=== PATIENT | male | born 1975 ===

== ENCOUNTER 2018-12-28 12:47 | Observation (INO) | payer OTHER ==
[2018-12-28 15:11] LABS: BASO # 0.1 K/uL (0.0-0.2); BASO % 0.8 % (0.0-2.0); EOS # 0.2 K/uL (0.0-0.7); EOS % 1.6 % (0.0-4.0); HEMOGLOBIN 15.2 g/dL (12.0-18.0); LYMPH # 2.4 K/uL (1.0-4.3); LYMPH % 25.1 % (20.0-40.0); MEAN CELL VOLUME 90.3 fL (80.0-94.0); MEAN CORPUSCULAR HEMOGLOBIN 30.2 pg (27.0-31.0); MEAN CORPUSCULAR HGB CONC 33.5 g/dL (33.0-37.0); MEAN PLATELET VOLUME 10.3 fL (7.2-11.7); MONO # 0.7 K/uL (0.0-0.8); MONO % 7.6 % (0.0-10.0); NEUT # 6.2 K/uL (1.8-7.0); NEUT % 64.9 % (50.0-75.0); NRBC % 0.1 % (0.0-2.0); RBC 5.03 Mil/uL (4.40-5.90); RED CELL DISTRIBUTION WIDTH 13.5 % (11.5-14.5); WHITE BLOOD COUNT 9.5 K/uL (4.8-10.8)
[2018-12-28 15:25] LABS: ALB/GLOB RATIO 1.4 (1.0-2.1); ALBUMIN 4.6 g/dL (3.5-5.0); ALT/SGPT 38 U/L (21-72); AST/SGOT 43 U/L (17-59); BLOOD UREA NITROGEN 21 mg/dL (9-20); CALCIUM 9.1 mg/dl (8.6-10.4); GFR NON-AFRICAN AMERICAN > 60; LIPASE 124 U/L (23-300)
--- NOTE | 2018-12-28 15:39 | RAD ---
HISTORY: SOB COMPARISON: None available. TECHNIQUE: Chest PA and lateral FINDINGS: LUNGS: No focal consolidation. Please note that chest x-ray has limited sensitivity for the detection of pulmonary masses. PLEURA: No significant pleural effusion identified. No definite pneumothorax . CARDIOVASCULAR: Heart size appears within normal limits. No atherosclerotic calcification present. OSSEOUS STRUCTURES: No acute osseous abnormality identified. VISUALIZED UPPER ABDOMEN: Unremarkable. OTHER FINDINGS: None. IMPRESSION: No focal consolidation.
--- NOTE | 2018-12-28 15:39 | C.PDOC ---
History Of Present Illness 43 y/o male presents to the ER complaining of midsternal chest pain which has been present for the past 3 days. Patient states that pain is non radiating. Patient denies having SOB, fever,chills, nausea, vomiting, and leg swelling. Time Seen by Provider: 12/28/18 14:49 Chief Complaint (Nursing): Chest Pain History Per: Patient History/Exam Limitations: no limitations Onset/Duration Of Symptoms: Days Current Symptoms Are (Timing): Still Present Severity: Moderate Quality: Aching Exacerbating Factors: None Alleviating Factors: None Additional History Per: Patient Past Medical History Reviewed: Historical Data, Nursing Documentation, Vital Signs Vital Signs: Last Vital Signs Temp 98.2 F 12/28/18 13:31 Pulse 98 H 12/28/18 13:31 Resp 20 12/28/18 13:31 BP 137/87 12/28/18 13:31 Pulse Ox 98 12/28/18 13:31 - Medical History PMH: No Chronic Diseases Surgical History: No Surg Hx Family History: States: No Known Family Hx - Social History Hx Alcohol Use: No Hx Substance Use: No Review Of Systems Except As Marked, All Systems Reviewed And Found Negative. Constitutional: Negative for: Fever, Chills Cardiovascular: Positive for: Chest Pain Respiratory: Negative for: Shortness of Breath Physical Exam - Physical Exam Appears: Non-toxic, No Acute Distress Skin: Normal Color, Warm, Dry Head: Atraumatic, Normacephalic Eye(s): bilateral: Normal Inspection Nose: Normal Oral Mucosa: Moist Neck: Supple Chest: Symmetrical Cardiovascular: Rhythm Regular Respiratory: Normal Breath Sounds, No Rales, No Rhonchi, No Wheezing Gastrointestinal/Abdominal: Normal Exam, Soft, No Tenderness, No Guarding, No Rebound Neurological/Psych: Oriented x3, Normal Speech ED Course And Treatment - Laboratory Results Result Diagrams: 12/28/18 15:06 12/28/18 15:06 Lab Results: Total Bilirubin 0.4 mg/dL (0.2-1.3) 12/28/18 15:06 AST 43 U/L (17-59) 12/28/18 15:06 ALT 38 U/L (21-72) 12/28/18 15:06 Alkaline Phosphatase 43 U/L (38-126) 12/28/18 15:06 Total Protein 8.0 g/dL (6.3-8.3) 12/28/18 15:06 Albumin 4.6 g/dL (3.5-5.0) 12/28/18 15:06 Globulin 3.3 gm/dL (2.2-3.9) 12/28/18 15:06 Albumin/Globulin Ratio 1.4 (1.0-2.1) 12/28/18 15:06 Lipase 124 U/L (23-300) 12/28/18 15:06 Lab Interpretation: No Acute Changes ECG: Interpreted By Me ECG Rhythm: Sinus Rhythm, Nonspecific Changes ECG Interpretation: No Acute Changes Rate From EC O2 Sat by Pulse Oximetry: 98 (RA) Pulse Ox Interpretation: Normal - Radiology CXR: Viewed By Me, Read By Radiologist (FINDINGS:) Progress Note: Treated with ASA 325 mg PO. 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 - Scribe Statement The provider has reviewed the documentation as recorded by the Gaetano Johnson Provider Attestation All medical record entries made by the Scribe were at my direction and personally dictated by me. I have reviewed the chart and agree that the record accurately reflects my personal performance of the history, physical exam, medical decision making, and the department course for this patient. I have also personally directed, reviewed, and agree with the discharge instructions and disposition.
[2018-12-28 16:11] LABS: URINE AMORPHOUS SEDIMENT MODERATE /ul (<OCC); URINE BACTERIA RARE (<OCC); URINE BILIRUBIN NEGATIVE (NEGATIVE); URINE BLOOD NEGATIVE (NEGATIVE); URINE CLARITY Turbid (Clear); URINE COLOR Yellow (YELLOW); URINE GLUCOSE (UA) NORMAL (Normal); URINE LEUKOCYTE ESTERASE NEG Leu/uL (Negative); URINE PROTEIN NEGATIVE (NEGATIVE); URINE UROBILINOGEN NORMAL mg/dL (0.2-1.0)
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
[2018-12-28 17:09] LABS: BARBITURATES, UR NEGATIVE (NEGATIVE); BENZODIAZEPINES, UR NEGATIVE (NEGATIVE); OPIATES, UR NEGATIVE (NEGATIVE); PHENCYCLIDINE, UR NEGATIVE (NEGATIVE)
[2018-12-28] MEDS ORDERED: Enoxaparin 80 mg Syringe SC SCH (18:00)
[2018-12-28] MEDS: Metoprolol Succinate 25 mg XL Tab PO SCH (18:43)
[2018-12-28] MEDS ORDERED: Mineral Oil Enema 135 ml RC ONE (18:52)
--- NOTE | 2018-12-28 20:08 | CP.PCM.CON ---
History of Present Illness - History of Present Illness History of Present Illness: Jareth Morales PGY1, Cardio consult note for Dr Bergman Pt is a 43 yo male with a PMH of HLD presenting with chest pain for 5 days which comes and goes. Pt states he has a pressure like pain in the center of his chest. Pt went to [facility] ED on Wednesday, pt was told he would require a cardiac cath but pt ended up leaving AMA. Standing made the pain worse, sitting/ laying down helped to relieve the pain. Pt states he has smoked for the past 20 years. Pt states his PMD gave him a medications but he is not compliant. Pt states he is mildly dizzy. Pt stopped taking his Rosuvastatin on Wednesday. Past Patient History - Past Social History Smoking Status: Never Smoked - PSYCHIATRIC Hx Substance Use: No Meds Allergies/Adverse Reactions: Allergies Allergy/AdvReac Type Severity Reaction Status Date / Time No Known Allergies Allergy Unverified 12/28/18 13:33 - Medications Medications: Current Medications Aspirin (Aspirin Chewable) 81 mg PO DAILY [facility] Metoprolol Succinate (Toprol Xl) 25 mg PO DAILY [facility] Last Admin: 12/28/18 18:43 Dose: 25 mg Nitroglycerin (Nitrostat Sl Tab) 0.4 mg SL Q5M PRN PRN Reason: Pain, severe (8-10) Pneumococcal Polyvalent Vaccine (Pneumovax 23 Vaccine) 0.5 ml IM .ONCE ONE Stop: 12/29/18 10:01 Rosuvastatin Calcium (Crestor) 10 mg PO [facility] Physical Exam - Constitutional Appears: No Acute Distress - Head Exam Head Exam: ATRAUMATIC, NORMOCEPHALIC - Eye Exam Eye Exam: EOMI - ENT Exam ENT Exam: Mucous Membranes Moist - Neck Exam Neck exam: Positive for: Normal Inspection - Respiratory Exam Respiratory Exam: Clear to Auscultation Bilateral, NORMAL BREATHING PATTERN. absent: Accessory Muscle Use, Respiratory Distress - Cardiovascular Exam Cardiovascular Exam: RRR, +S1, +S2. absent: Diastolic murmur, Systolic Murmur - GI/Abdominal Exam GI & Abdominal Exam: Normal Bowel Sounds, Soft - Extremities Exam Extremities exam: Positive for: full ROM, pedal pulses present. Negative for: calf tenderness - Neurological Exam Neurological exam: Alert, Oriented x3, Reflexes Normal - Psychiatric Exam Psychiatric exam: Normal Affect, Normal Mood - Skin Skin Exam: Dry, Intact, Warm Results - Vital Signs Recent Vital Signs: Last Vital Signs Temp 98.9 F 12/28/18 18:16 Pulse 89 12/28/18 18:16 Resp 18 12/28/18 18:16 BP 146/88 12/28/18 18:16 Pulse Ox 97 12/28/18 18:16 - Labs Result Diagrams: 12/28/18 15:06 12/28/18 15:06 Labs: Laboratory Results - last 24 hr 12/28/18 12/28/18 12/28/18 15:06 15:06 15:53 WBC 9.5 RBC 5.03 Hgb 15.2 Hct 45.4 MCV 90.3 MCH 30.2 MCHC 33.5 RDW 13.5 Plt Count 154 MPV 10.3 Neut % (Auto) 64.9 Lymph % (Auto) 25.1 [place] % (Auto) 7.6 Eos % (Auto) 1.6 Baso % (Auto) 0.8 Neut # (Auto) 6.2 Lymph # (Auto) 2.4 [place] # (Auto) 0.7 Eos # (Auto) 0.2 Baso # (Auto) 0.1 Sodium 139 Potassium 4.0 Chloride 101 Carbon Dioxide 28 Anion Gap 14 BUN 21 H Creatinine 0.9 Est GFR ( Amer) > 60 Est GFR (Non-Af Amer) > 60 Random Glucose 97 Hemoglobin A1c Calcium 9.1 Total Bilirubin 0.4 AST 43 ALT 38 Alkaline Phosphatase 43 CK-MB (Mass) Troponin I 1.8700 H* Total Protein 8.0 Albumin 4.6 Globulin 3.3 Albumin/Globulin Ratio 1.4 Lipase 124 Urine Color Yellow Urine Clarity Turbid Urine pH 7.0 Ur Specific [place] 1.024 Urine Protein Negative Urine Glucose (UA) Normal Urine Ketones Negative Urine Blood Negative Urine Nitrate Negative Urine Bilirubin Negative Urine Urobilinogen Normal Ur Leukocyte Esterase Neg Amorphous Sediment Moderate H Urine Bacteria Rare Urine Opiates Screen Urine Methadone Screen Ur Barbiturates Screen Ur Phencyclidine Scrn Ur Amphetamines Screen U Benzodiazepines Scrn U Oth Cocaine Metabols U Cannabinoids Screen 12/28/18 12/28/18 12/28/18 16:21 16:43 17:08 WBC RBC Hgb Hct MCV MCH MCHC RDW Plt Count MPV Neut % (Auto) Lymph % (Auto) [place] % (Auto) Eos % (Auto) Baso % (Auto) Neut # (Auto) Lymph # (Auto) [place] # (Auto) Eos # (Auto) Baso # (Auto) Sodium Potassium Chloride Carbon Dioxide Anion Gap BUN Creatinine Est GFR ( Amer) Est GFR (Non-Af Amer) Random Glucose Hemoglobin A1c 5.7 Calcium Total Bilirubin AST ALT Alkaline Phosphatase CK-MB (Mass) 7.73 H Troponin I Total Protein Albumin Globulin Albumin/Globulin Ratio Lipase Urine Color Urine Clarity Urine pH Ur Specific [place] Urine Protein Urine Glucose (UA) Urine Ketones Urine Blood Urine Nitrate Urine Bilirubin Urine Urobilinogen Ur Leukocyte Esterase Amorphous Sediment Urine Bacteria Urine Opiates Screen Negative Urine Methadone Screen Negative Ur Barbiturates Screen Negative Ur Phencyclidine Scrn Negative Ur Amphetamines Screen Negative U Benzodiazepines Scrn Negative U Oth Cocaine Metabols Negative U Cannabinoids Screen Negative Assessment & Plan - Assessment and Plan (Free Text) Assessment: NSTEMI ACS Angina HLD Tobacco abuse Plan: NSTEMI HA1C Trop 1.87, continue to trend Q6 TSH follow up lipid panel follow up ECHO follow up Medications ASA metoprolol nitrostat SL lorenzo Terry Pt seen, examined, assessment and plan discussed with Dr Pacheco Morales PGY1, Internal Medicine Resident - Date & Time Date: 12/28/18 Time: 20:08
[2018-12-28 20:29] LABS: CK-MB 8.39 ng/mL (0.0-3.38); TROPONIN I 2.89 ng/mL (0.00-0.120)
[2018-12-29 00:55] VITALS: RESP 20
[2018-12-29 03:49] LABS: CK-MB 9.21 ng/mL (0.0-3.38); TROPONIN I 4.25 ng/mL (0.00-0.120)
[2018-12-29] MEDS ORDERED: Lidocaine 2% MPF (5 ml) Inj ONE ×2 (06:36→06:53)
[2018-12-29] MEDS ORDERED: Verapamil 2 ML ONE (06:43)
[2018-12-29] MEDS ORDERED: Midazolam 2 MG/2 ML VIAL ONE (07:04)
--- NOTE | 2018-12-29 07:21 | CP.PCM.PN ---
Subjective - Date & Time of Evaluation Date of Evaluation: 12/29/18 Time of Evaluation: 07:21 - Subjective Subjective: Progress Note for Hospitalist service Patient seen and examined at bedside. He states he has no chest pain, shortness of breath, palpitations currently. He denies fevers, chills, headache, dizziness, abdominal pain, nausea, vomiting, diarrhea. Objective - Vital Signs/Intake and Output Vital Signs (last 24 hours): Temp Pulse Resp BP Pulse Ox 98.1 F 69 20 113/74 98 12/28/18 23:25 12/29/18 01:00 12/28/18 23:25 12/28/18 23:25 12/28/18 23:25 Intake and Output: 12/29/18 12/29/18 06:59 18:59 Intake Total 400 Balance 400 - Medications Medications: Current Medications Aspirin (Aspirin Chewable) 81 mg PO DAILY [facility] Metoprolol Succinate (Toprol Xl) 25 mg PO DAILY [facility] Last Admin: 12/28/18 18:43 Dose: 25 mg Nitroglycerin (Nitrostat Sl Tab) 0.4 mg SL Q5M PRN PRN Reason: Pain, severe (8-10) Pneumococcal Polyvalent Vaccine (Pneumovax 23 Vaccine) 0.5 ml IM .ONCE ONE Stop: 12/29/18 10:01 Rosuvastatin Calcium (Crestor) 10 mg PO HS [facility] Last Admin: 12/28/18 21:55 Dose: 10 mg - Labs Labs: 12/28/18 15:06 12/28/18 15:06 - Constitutional Appears: Well, No Acute Distress - Head Exam Head Exam: ATRAUMATIC, NORMOCEPHALIC - Eye Exam Eye Exam: EOMI, PERRL - ENT Exam ENT Exam: Mucous Membranes Moist - Neck Exam Neck Exam: Full ROM - Respiratory Exam Respiratory Exam: Clear to Ausculation Bilateral, NORMAL BREATHING PATTERN. absent: Rales, Rhonchi, Wheezes, Respiratory Distress, Stridor - Cardiovascular Exam Cardiovascular Exam: REGULAR RHYTHM, +S1, +S2 - GI/Abdominal Exam GI & Abdominal Exam: Soft, Normal Bowel Sounds. absent: Distended, Firm, Guarding, Rigid, Tenderness - Extremities Exam Extremities Exam: absent: Calf Tenderness, Pedal Edema - Neurological Exam Neurological Exam: Alert, Awake, Oriented x3 - Psychiatric Exam Psychiatric exam: Normal Affect, Normal Mood - Skin Skin Exam: Dry, Intact, Warm Assessment and Plan - Assessment and Plan (Free Text) Assessment: 43 year old male who presents for 5 day history of intermittent chest pain Plan: NSTEMI ASA 81mg PO daily Toprol XL 25mg PO daily Nitroglycerin 0.4mg SL Q5 Crestor 10mg PO HS UDS negative Stage Set [employer]er Dr. Bergman consulted, help appreciated EKG NSR 95 LAD EKG NSR 75 LAD EKG NSR 71 CXR no focal consolidation Troponins 1.87 --> 2.89 --> 4.25 Echo report pending Cath revealed LAD mid 80% stenosis, diagonal 1 70% stenosis, left circumflex 99% stenosis, RCA 55% stenosis PCI at [place] today. History of hyperlipidemia Crestor 10mg PO HS Case discussed with Dr. Leanne Phillips, PGY1
[2018-12-29] MEDS ORDERED: Pneumococcal 23-Valent Vaccine IM ONE (10:00)
--- NOTE | 2018-12-29 13:04 | CP.PCM.PN ---
Subjective - Date & Time of Evaluation Date of Evaluation: 12/29/18 Time of Evaluation: 07:00 - Subjective Subjective: Pt seen and examined this morning before procedure. Objective - Vital Signs/Intake and Output Vital Signs (last 24 hours): Temp Pulse Resp BP Pulse Ox 98.1 F 88 20 113/74 98 12/28/18 23:25 12/29/18 11:35 12/28/18 23:25 12/28/18 23:25 12/28/18 23:25 Intake and Output: 12/29/18 12/29/18 06:59 18:59 Intake Total 400 Balance 400 - Medications Medications: Current Medications Aspirin (Aspirin Chewable) 81 mg PO DAILY [facility] Metoprolol Succinate (Toprol Xl) 25 mg PO DAILY [facility] Last Admin: 12/28/18 18:43 Dose: 25 mg Nitroglycerin (Nitrostat Sl Tab) 0.4 mg SL Q5M PRN PRN Reason: Pain, severe (8-10) Rosuvastatin Calcium (Crestor) 10 mg PO [facility] Last Admin: 12/28/18 21:55 Dose: 10 mg - Labs Labs: 12/28/18 15:06 12/28/18 15:06 - Constitutional Appears: No Acute Distress - Head Exam Head Exam: ATRAUMATIC, NORMOCEPHALIC - Eye Exam Eye Exam: EOMI - ENT Exam ENT Exam: Mucous Membranes Moist - Neck Exam Neck Exam: Full ROM - Respiratory Exam Respiratory Exam: Clear to Ausculation Bilateral, NORMAL BREATHING PATTERN. absent: Accessory Muscle Use - Cardiovascular Exam Cardiovascular Exam: RRR, +S1, +S2. absent: Diastolic murmur, Murmur - GI/Abdominal Exam GI & Abdominal Exam: Soft, Normal Bowel Sounds. absent: Tenderness - Extremities Exam Extremities Exam: Full ROM. absent: Calf Tenderness, Pedal Edema, Tenderness - Neurological Exam Neurological Exam: Alert, Awake, Oriented x3 - Psychiatric Exam Psychiatric exam: Normal Affect, Normal Mood - Skin Skin Exam: Dry, Intact, Warm Assessment and Plan - Assessment and Plan (Free Text) Assessment: NSTEMI ACS Angina HLD Tobacco abuse Plan: NSTEMI HA1C 5.7 Trop (12/28/18) 1.87, 2.89, 4.25 TSH, lipid panel follow up ECHO 12/28/18 follow up read cardiac cath perfomed at [facility] today, [place] [facility] [place] Medications ASA metoprolol nitrostat SL masteror Harrison Pt seen, examined, assessment and plan discussed with Dr Pacheco Morales PGY1, Internal Medicine Resident
--- NOTE | 2018-12-29 14:16 | CARDCATH ---
PROCEDURE DATE: 12/29/2018 PROCEDURES PERFORMED: Left heart catheterization with selective left and right coronary angiogram, left ventriculogram, 6-American left radial arterial access. CLINICAL INDICATIONS: Non-ST elevation DE. ANGIOGRAPHIC FINDINGS: The left main is a large-sized vessel bifurcates into left anterior descending and left circumflex coronary artery. The left anterior descending artery had a long diffuse mid 80% stenosis, gives off two medium sized diagonal branches; diagonal 1 has proximal 70% stenosis. Left circumflex runs in the AV groove, somewhat ectatic, gives off an obtuse marginal branch, has a distal high grade 99% subtotal occlusion at the bifurcation of the OM and left circumflex. RCA is a large sized vessel, has proximal 55% stenosis with intermittent ectatic lesions with distal 60% stenosis. IMPRESSION: Severe left anterior descending, diagonal and circumflex stenosis, moderate right coronary artery stenosis, normal ejection fraction; ejection fraction is 55%, end-diastolic pressure 18. RECOMMENDATIONS: The patient is to undergo intervention of the LAD and distal circumflex later today at [facility]. Alcon Bergman MD
[2018-12-29] MEDS ORDERED: Sodium Chloride 0.9% 1,000 ML IV SCH (16:00)
--- NOTE | 2018-12-29 18:40 | CARD ---
APPROVED REPORT Date of service: 12/29/2018 EXAM: Two-dimensional and M-mode echocardiogram with Doppler and color Doppler. Other Information Quality : GoodRhythm : INDICATION Chest Pain RISK FACTORS Hypertension 2D DIMENSIONS IVSd1.1 (0.7-1.1cm)LVDd5.2 (3.9-5.9cm) PWd1.0 (0.7-1.1cm)LA [id number] (18-58mL) LVDs4.4 (2.5-4.0cm)FS (%) 16.0 % LVEF (%)45.0 (>50%)LVEF (Rueda's)54.97 % IVC0.00 cm M-Mode DIMENSIONS RVDd2.39 (2.1-3.2cm)Left Atrium (MM)2.76 (2.5-4.0cm) IVSd1.32 (0.7-1.1cm)Aortic Root3.59 (2.2-3.7cm) LVDd5.41 (4.0-5.6cm)Aortic Cusp Exc.2.05 (1.5-2.0cm) PWd0.97 (0.7-1.1cm)FS (%) 22 % LVDs4.23 (2.0-3.8cm)TAPSE16.49 cm LVEF (%)44 (>50%) Mitral Valve MV E Mftidguw57.5cm/sMV A Yrsaqlam94.1cm/sE/A ratio1.0 TDI Lateral E' Peak V7.32cm/sMedial E' Peak V5.96cm/sE/Lateral E'5.5 E/Medial E'6.8 LEFT VENTRICLE The left ventricle is normal size. There is normal left ventricular wall thickness. The left ventricular function is normal. The left ventricular ejection fraction is within the normal range.55% No regional wall motion abnormalities noted. The left ventricular diastolic function is probably normal. No left ventricle thrombus noted on this study. There is no ventricular septal defect visualized. There is no left ventricular aneurysm. There is no mass noted in the left ventricle. RIGHT VENTRICLE The right ventricle is normal size. There is normal right ventricular wall thickness. The right ventricular systolic function is normal. ATRIA The left atrium size is normal. The right atrium size is normal. The interatrial septum is intact with no evidence for an atrial septal defect. AORTIC VALVE The aortic valve is normal in structure and function. No aortic regurgitation is present. There is no aortic valvular stenosis. There is no aortic valvular vegetation. MITRAL VALVE The mitral valve is normal in structure and function. There is no evidence of mitral valve prolapse. There is no mitral valve stenosis. There is no mitral valve regurgitation noted. TRICUSPID VALVE The tricuspid valve is normal in structure and function. There is no tricuspid valve regurgitation noted. There is no tricuspid valve prolapse or vegetation. There is no tricuspid valve stenosis. PULMONIC VALVE The pulmonary valve is normal in structure and function. There is no pulmonic valvular regurgitation. There is no pulmonic valvular stenosis. GREAT VESSELS The aortic root is normal in size. The ascending aorta is normal in size. The pulmonary artery is normal. The IVC is normal in size and collapses >50% with inspiration. PERICARDIAL EFFUSION The pericardium appears normal. There is no pleural effusion. <Conclusion> Normal left ventridcular systolic function and wall motion. Normal Doppler.
--- NOTE | 2018-12-29 20:07 | CARD ---
APPROVED REPORT Date of service: 12/28/2018 EKG Measurement Heart [id number] <Conclusion> Normal sinus rhythm Left axis deviation Incomplete right bundle branch block Septal infarct, age undetermined Possible Inferior infarct, age undetermined Abnormal ECG
--- NOTE | 2018-12-29 20:11 | CARD ---
APPROVED REPORT Date of service: 12/28/2018 EKG Measurement Heart [id number] [place] 136P52 [id number] <Conclusion> Normal sinus rhythm Left axis deviation Abnormal ECG
[2018-12-30 06:45] LABS: ALB/GLOB RATIO 1.4 (1.0-2.1); ALBUMIN 4.6 g/dL (3.5-5.0); ALT/SGPT 40 U/L (21-72); AST/SGOT 36 U/L (17-59); BLOOD UREA NITROGEN 17 mg/dL (9-20); CALCIUM 9.3 mg/dl (8.6-10.4); GFR NON-AFRICAN AMERICAN > 60
--- NOTE | 2018-12-30 07:06 | CP.PCM.PN ---
Subjective - Date & Time of Evaluation Date of Evaluation: 12/30/18 Time of Evaluation: 07:06 Objective - Vital Signs/Intake and Output Vital Signs (last 24 hours): Temp Pulse Resp BP Pulse Ox 98.3 F 74 20 121/74 98 12/29/18 23:00 12/30/18 01:00 12/29/18 23:00 12/29/18 23:00 12/29/18 23:00 Intake and Output: 12/30/18 12/30/18 06:59 18:59 Intake Total 350 Output Total 500 Balance -150 - Medications Medications: Current Medications Aspirin (Aspirin Chewable) 81 mg PO DAILY [facility] Metoprolol Succinate (Toprol Xl) 25 mg PO DAILY [facility] Last Admin: 12/28/18 18:43 Dose: 25 mg Nitroglycerin (Nitrostat Sl Tab) 0.4 mg SL Q5M PRN PRN Reason: Pain, severe (8-10) Rosuvastatin Calcium (Crestor) 10 mg PO [facility] Last Admin: 12/29/18 22:49 Dose: 10 mg - Labs Labs: 12/28/18 15:06 12/30/18 06:22
[2018-12-30 07:20] LABS: BASO % 0.3 % (0.0-2.0); EOS # 0.1 K/uL (0.0-0.7); EOS % 1.1 % (0.0-4.0); HEMOGLOBIN 15.4 g/dL (12.0-18.0); LYMPH # 2.1 K/uL (1.0-4.3); MEAN CORPUSCULAR HEMOGLOBIN 30.4 pg (27.0-31.0); MEAN CORPUSCULAR HGB CONC 33.5 g/dL (33.0-37.0); MEAN PLATELET VOLUME 10.6 fL (7.2-11.7); MONO # 0.7 K/uL (0.0-0.8); NEUT # 7.4 K/uL (1.8-7.0); NEUT % 71.6 % (50.0-75.0); NRBC % 0.4 % (0.0-2.0); RBC 5.07 Mil/uL (4.40-5.90); RED CELL DISTRIBUTION WIDTH 13.5 % (11.5-14.5); WHITE BLOOD COUNT 10.3 K/uL (4.8-10.8)
[2018-12-30 08:22] VITALS: TEMP 99; O2SAT 96
[2018-12-30] MEDS: Metoprolol Succinate 25 mg XL Tab PO SCH (09:42)
[2018-12-30 09:43] VITALS: BP 109/74
--- NOTE | 2018-12-30 10:31 | CP.PCM.PN ---
Subjective - Date & Time of Evaluation Date of Evaluation: 12/30/18 Time of Evaluation: 07:50 - Subjective Subjective: Pt seen and examined this morning at bedside. Pt denies chest pain or SOB Objective - Vital Signs/Intake and Output Vital Signs (last 24 hours): Temp Pulse Resp BP Pulse Ox 99 F 102 H 20 109/74 96 12/30/18 07:00 12/30/18 09:42 12/30/18 07:00 12/30/18 09:42 12/30/18 08:00 Intake and Output: 12/30/18 12/30/18 06:59 18:59 Intake Total 350 120 Output Total 500 600 Balance -150 -480 - Medications Medications: Current Medications Aspirin (Aspirin Chewable) 81 mg PO DAILY [facility] Last Admin: 12/30/18 09:41 Dose: 81 mg Metoprolol Succinate (Toprol Xl) 25 mg PO DAILY [facility] Last Admin: 12/30/18 09:42 Dose: 25 mg Nitroglycerin (Nitrostat Sl Tab) 0.4 mg SL Q5M PRN PRN Reason: Pain, severe (8-10) Rosuvastatin Calcium (Crestor) 10 mg PO [facility] Last Admin: 12/29/18 22:49 Dose: 10 mg - Labs Labs: 12/30/18 06:22 12/30/18 06:22 - Constitutional Appears: No Acute Distress - Head Exam Head Exam: ATRAUMATIC, NORMOCEPHALIC - Eye Exam Eye Exam: EOMI - ENT Exam ENT Exam: Mucous Membranes Moist - Neck Exam Neck Exam: Full ROM, Normal Inspection - Respiratory Exam Respiratory Exam: Clear to Ausculation Bilateral, NORMAL BREATHING PATTERN. absent: Accessory Muscle Use - Cardiovascular Exam Cardiovascular Exam: Tachycardia, REGULAR RHYTHM, +S1, +S2. absent: Diastolic murmur, Murmur - GI/Abdominal Exam GI & Abdominal Exam: Soft, Normal Bowel Sounds. absent: Tenderness - Extremities Exam Extremities Exam: Full ROM. absent: Calf Tenderness, Pedal Edema - Neurological Exam Neurological Exam: Alert, Awake, Oriented x3 - Psychiatric Exam Psychiatric exam: Normal Affect, Normal Mood - Skin Skin Exam: Dry, Normal Color, Warm Assessment and Plan - Assessment and Plan (Free Text) Assessment: NSTEMI ACS Angina HLD Tobacco abuse Plan: NSTEMI HA1C 5.7, TSH 4.35 Trop (12/28/18) 1.87, 2.89, 4.25 ECHO 12/28/18 normal doppler STEVIE placed in LAD and Circ 12/29/18 at [facility] pt strongly encouraged to stop smoking pt to follow up in 1-2 weeks in the office Medications ASA metoprolol nitrostat SL crestor Plavix Pt seen, examined, assessment and plan discussed with Dr Pacheco Morales PGY1, Internal Medicine Resident
--- NOTE | 2018-12-30 10:59 | CARD ---
APPROVED REPORT Date of service: 12/29/2018 EKG Measurement Heart [id number] DC 148P30 [id number] <Conclusion> Normal sinus rhythm Right axis deviation Abnormal ECG
--- NOTE | 2018-12-30 15:20 | CP.PCM.DIS ---
Provider - Provider Date of Admission: 12/28/18 16:19 Attending physician: Aaliyah Perdomo DO Consults: 12/28/18 16:35 Cardiology Consult Routine Comment: Consulting Provider: Alcon Bergman Consulting Physician: Alcon Bergman Reason for Consult: nonstemi Time Spent in preparation of Discharge (in minutes): 40 Hospital Course - Lab Results Lab Results: Most Recent Lab Values WBC 10.3 K/uL (4.8-10.8) 12/30/18 06:22 RBC 5.07 Mil/uL (4.40-5.90) 12/30/18 06:22 Hgb 15.4 g/dL (12.0-18.0) 12/30/18 06:22 Hct 46.2 % (35.0-51.0) 12/30/18 06:22 MCV 91.0 fL (80.0-94.0) 12/30/18 06:22 MCH 30.4 pg (27.0-31.0) 12/30/18 06:22 MCHC 33.5 g/dL (33.0-37.0) 12/30/18 06:22 RDW 13.5 % (11.5-14.5) 12/30/18 06:22 Plt Count 168 K/uL (130-400) 12/30/18 06:22 MPV 10.6 fL (7.2-11.7) 12/30/18 06:22 Neut % (Auto) 71.6 % (50.0-75.0) 12/30/18 06:22 Lymph % (Auto) 20.0 % (20.0-40.0) 12/30/18 06:22 [place] % (Auto) 7.0 % (0.0-10.0) 12/30/18 06:22 Eos % (Auto) 1.1 % (0.0-4.0) 12/30/18 06:22 Baso % (Auto) 0.3 % (0.0-2.0) 12/30/18 06:22 Neut # (Auto) 7.4 K/uL (1.8-7.0) H 12/30/18 06:22 Lymph # (Auto) 2.1 K/uL (1.0-4.3) 12/30/18 06:22 [place] # (Auto) 0.7 K/uL (0.0-0.8) 12/30/18 06:22 Eos # (Auto) 0.1 K/uL (0.0-0.7) 12/30/18 06:22 Baso # (Auto) 0.0 K/uL (0.0-0.2) 12/30/18 06:22 ESR 13 mm/hr (0-15) 12/28/18 19:54 Sodium 136 mmol/L (132-148) 12/30/18 06:22 Potassium 4.3 mmol/L (3.6-5.2) 12/30/18 06:22 Chloride 101 mmol/L (98-107) 12/30/18 06:22 Carbon Dioxide 25 mmol/L (22-30) 12/30/18 06:22 Anion Gap 15 (10-20) 12/30/18 06:22 BUN 17 mg/dL (9-20) 12/30/18 06:22 Creatinine 0.8 mg/dL (0.8-1.5) 12/30/18 06:22 Est GFR ( Amer) > 60 12/30/18 06:22 Est GFR (Non-Af Amer) > 60 12/30/18 06:22 Random Glucose 104 mg/dL (75-110) 12/30/18 06:22 Hemoglobin A1c 5.7 % (4.2-6.5) 12/28/18 17:08 Calcium 9.3 mg/dl (8.6-10.4) 12/30/18 06:22 Phosphorus 4.5 mg/dL (2.5-4.5) 12/30/18 06:22 Magnesium 1.6 mg/dL (1.6-2.3) 12/30/18 06:22 Total Bilirubin 0.7 mg/dL (0.2-1.3) 12/30/18 06:22 AST 36 U/L (17-59) 12/30/18 06:22 ALT 40 U/L (21-72) 12/30/18 06:22 Alkaline Phosphatase 49 U/L (38-126) 12/30/18 06:22 Total Creatine Kinase 329 U/L (55-170) H 12/29/18 03:13 CK-MB (Mass) 9.21 ng/mL (0.0-3.38) H 12/29/18 03:13 Troponin I 4.2500 ng/mL (0.00-0.120) H* 12/29/18 03:13 C-Reactive Protein < 5.00 mg/L (0.0-9.9) 12/28/18 19:54 Total Protein 7.8 g/dL (6.3-8.3) 12/30/18 06:22 Albumin 4.6 g/dL (3.5-5.0) 12/30/18 06:22 Globulin 3.2 gm/dL (2.2-3.9) 12/30/18 06:22 Albumin/Globulin Ratio 1.4 (1.0-2.1) 12/30/18 06:22 Lipase 124 U/L (23-300) 12/28/18 15:06 TSH 3rd Generation 4.35 mIU/L (0.46-4.68) 12/30/18 06:22 Urine Color Yellow (YELLOW) 12/28/18 15:53 Urine Clarity Turbid (Clear) 12/28/18 15:53 Urine pH 7.0 (5.0-8.0) 12/28/18 15:53 Ur Specific [place] 1.024 (1.003-1.030) 12/28/18 15:53 Urine Protein Negative mg/dL (NEGATIVE) 12/28/18 15:53 Urine Glucose (UA) Normal mg/dL (Normal) 12/28/18 15:53 Urine Ketones Negative mg/dL (NEGATIVE) 12/28/18 15:53 Urine Blood Negative (NEGATIVE) 12/28/18 15:53 Urine Nitrate Negative (NEGATIVE) 12/28/18 15:53 Urine Bilirubin Negative (NEGATIVE) 12/28/18 15:53 Urine Urobilinogen Normal mg/dL (0.2-1.0) 12/28/18 15:53 Ur Leukocyte Esterase Neg Spencer/uL (Negative) 12/28/18 15:53 Amorphous Sediment Moderate /ul (<OCC) H 12/28/18 15:53 Urine Bacteria Rare (<OCC) 12/28/18 15:53 Urine Opiates Screen Negative (NEGATIVE) 12/28/18 16:43 Urine Methadone Screen Negative (NEGATIVE) 12/28/18 16:43 Ur Barbiturates Screen Negative (NEGATIVE) 12/28/18 16:43 Ur Phencyclidine Scrn Negative (NEGATIVE) 12/28/18 16:43 Ur Amphetamines Screen Negative (NEGATIVE) 12/28/18 16:43 U Benzodiazepines Scrn Negative (NEGATIVE) 12/28/18 16:43 U Oth Cocaine Metabols Negative (NEGATIVE) 12/28/18 16:43 U Cannabinoids Screen Negative (NEGATIVE) 12/28/18 16:43 - Hospital Course Hospital Course: On admission: Patient is a 43 year old male with past medical history of HLD presenting with chest pain for 5 days waxing waning. Initial was a burning sensation but became pressure in the center of his chest today. Pt went to [facility] ER on sat, where they told him he needed to be admitted for a cath. Pt left AMA to tend to his family It was worse when standing and lasted for 30 minutes while at work. Pt felt better when he lied down and now says pain has resolved. Pt has never had anything like this happen before. Pt said he was seen by his PMD Dr Stephen Jacobs 2 years ago and had left sided chest pain but felt different. He said his doctor gave him medications that he no longer takes, had no symptoms since now. Currently complains of mild dizziness. Pt says he took an ibuprofen on wednesday for the pain. He also took an 81mg ASA this AM. Pt stopped taking his Rosuvastatin on Wednesday aswell. Hospital course: Patient was admitted for NSTEMI after serial troponins were elevated. Examination Grader Dr. Bergman was consulted. Cardiac catheterization revealed LAD mid 80% stenosis, diagonal 1 70% stenosis, left circumflex 99% stenosis, RCA 55% stenosis. Echo revealed normal LV systolic function and wall motion. Patient was transferred to [place] for stent placement in LAD and left circumflex. Patient was treated with ASA,Toprol XL, Nitroglycerin, Crestor and Lisinopril. Upon discharge, patient was asymptomatic with no chest pain. Discharge Please keep appointment with your primary care doctor Dr. Stephen Jacobs on Wednesday01/02/19. If you cannot follow up with Dr. Jacobs for any reason, you may follow up with [facility] by calling [phone] located at the [facility]. Please follow up with Examination Grader Dr. Bergman within 2 weeks in his office. Since you have heart disease, it is very important that you do not smoke ever again as it will negatively affect your blood vessel and can cause sudden . Do not exercise vigorously until you are cleared to do so by your test automation architect. Please take all your medications as prescribed. Return to the Emergency Room if you experience any chest pain, shortness of breath or palpitations. Prescriptions provided: Aspirin 81mg by mouth daily Losartan 25mg by mouth daily Toprol XL 25mg by mouth daily Crestor 10mg by mouth daily Plavix 75mg by mouth daily Discharge Exam - Head Exam Head Exam: ATRAUMATIC, NORMOCEPHALIC - Eye Exam Eye Exam: EOMI, PERRL - ENT Exam ENT Exam: Mucous Membranes Moist - Neck Exam Neck exam: Full Rom - Respiratory Exam Respiratory Exam: Clear to PA & Lateral, NORMAL BREATHING PATTERN. absent: Rales, Rhonchi, Wheezes, Stridor - Cardiovascular Exam Cardiovascular Exam: REGULAR RHYTHM, +S1, +S2 - GI/Abdominal Exam GI & Abdominal Exam: Normal Bowel Sounds, Soft - Extremities Exam Extremities exam: pedal pulses present - Back Exam Back exam: absent: CVA tenderness (L), CVA tenderness (R) - Neurological Exam Neurological exam: Alert, Oriented x3 - Skin Skin Exam: Dry, Intact, Warm Additional comments: No hematoma formation in right groin at site of cath Discharge Plan - Discharge Medications Prescriptions: Aspirin [Aspirin Chewable] 81 mg PO DAILY #30 chew Clopidogrel [Plavix] 75 mg PO DAILY #30 tab Losartan [Cozaar] 25 mg PO DAILY #30 tab Metoprolol Succinate XL [Toprol XL] 25 mg PO DAILY #30 tab Rosuvastatin Calcium [Crestor] 10 mg PO HS #30 tab - Follow Up Plan Condition: STABLE Disposition: HOME/ ROUTINE Instructions: Heart Healthy Diet, High Blood Pressure (DC), Chest Pain (DC), Low Salt Diet, Aspirin, Clopidogrel, Losartan, Metoprolol, Rosuvastatin Additional Instructions: Please keep appointment with your primary care doctor Dr. Stephen Jacobs on Wednesday01/02/19. If you cannot follow up with Dr. Jacobs for any reason, you may follow up with [facility] by calling [phone] located at the [facility]. Please follow up with Examination Grader Dr. Bergman within 2 weeks in his office. Since you have heart disease, it is very important that you do not smoke ever again as it will negatively affect your blood vessel and can cause sudden . Do not exercise vigorously until you are cleared to do so by your test automation architect. Please take all your medications as prescribed. Return to the Emergency Room if you experience any chest pain, shortness of breath or palpitations. Prescriptions provided: Aspirin 81mg by mouth daily Losartan 25mg by mouth daily Toprol XL 25mg by mouth daily Crestor 10mg by mouth daily Plavix 75mg by mouth daily Por favor, roverto cristina colin con lopez mdico de atencin primaria, el Dr. Stephen Jacobs, el 01/02/19. Si no puede hacer un seguimiento con el Dr. Jacobs por cualquier motivo, puede hacerlo en la [facility] [facility] de [facility] al [phone] ubicado en el [facility]. Por favor roverto un seguimiento con el cardilogo Dr. Bergman dentro de 2 semanas en lopez oficina. [place] usted tiene cristina enfermedad cardaca, es muy importante que no vuelva a fumar, ya que afectar negativamente a lopez vaso sanguneo y puede causar la muerte sbita. No roverto ejercicios vigorosos hasta que lopez cardilogo le d permiso para hacerlo. Por favor, tome todos jermaine medicamentos segn lo prescrito. Regrese a la taran de emergencias si experimenta dolor en el pecho, dificultad para respirar o palpitaciones. Prescripciones proporcionadas: Aspirina 81 mg por va oral al da. Losartn 25 mg por va oral al da. Toprol XL 25 mg por va oral al da Crestor 10 mg por va oral al da Plavix 75 mg por va oral al da. Referrals: [facility] at [facility] [Outside] Alcon Bergman MD [Staff Provider] -
[2018-12-30 16:06] VITALS: PULSE 100
== END 2018-12-30 16:56 | disposition home or self-care (01) ==
LOC: C.ER 12:47 → C.9E 16:19 → C.6T 17:08
PROVIDERS: ADMIT Hospitalist; ATTEND Hospitalist
DX: I21.4 Non-ST elevation (NSTEMI) myocardial infarction (principal); I25.119 Atherosclerotic heart disease of native coronary artery with unspecified angina pectoris; E78.5 Hyperlipidemia, unspecified; Z72.0 Tobacco use; Z79.82 Long term (current) use of aspirin
CPT/HCPCS: 36415; 71046; 80053; 80324; 80345; 80346; 80349; 80353; 80358; 80361; 81001; 82553; 83036; 83690; 83735; 83992; 84100; 84443; 84484; 85025; 85651; 86038; 86039; 86140; 93005; 93306; 93452; 99285; G0378; J1644; J1650; J2001; J2250; J3010; Q9967

== ENCOUNTER 2019-01-17 08:21 | Emergency (ER) | payer OTHER ==
--- NOTE | 2019-01-17 08:48 | C.PDOC ---
History Of Present Illness 43 year old male presents to the ED for evaluation of left-sided chest pain which occurred last night. Patient describes his pain as sharp, with occasional burning-like sensation. Patient states he was evaluated in this ED on 12/29/18 and underwent catheterization. He denies any chest pain today, as well as fever, chills, cough, nausea, vomiting, or recent travel. 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) History/Exam Limitations: language barrier Onset/Duration Of Symptoms: Hrs Current Symptoms Are (Timing): Gone Quality: Sharp, Burning, "Pain" Associated Symptoms: denies: Nausea Recent travel outside of the [place]: No Additional History Per: Patient Past Medical History Reviewed: Historical Data, Nursing Documentation, Vital Signs - Medical History PMH: Hypercholesterolemia Surgical History: No Surg Hx Family History: States: Unknown Family Hx - Social History Hx Alcohol Use: No Hx Substance Use: No - Immunization History Hx Tetanus Toxoid Vaccination: (unknown) Hx Influenza Vaccination: Yes Hx Pneumococcal Vaccination: (unknown) Review Of Systems Constitutional: Negative for: Fever, Chills Cardiovascular: Positive for: Chest Pain (left-sided) Respiratory: Negative for: Cough Gastrointestinal: Negative for: Nausea, Vomiting Physical Exam - Physical Exam Appears: Non-toxic, No Acute Distress Skin: Normal Color, Warm, Dry Head: Atraumatic, Normacephalic Eye(s): bilateral: Normal Inspection Oral Mucosa: Moist Neck: Supple Chest: Symmetrical, No Deformity, No Tenderness Cardiovascular: Rhythm Regular, No Murmur Respiratory: Normal Breath Sounds, No Rales, No Rhonchi, No Wheezing Extremity: Normal ROM, Capillary Refill (less than 2 seconds ) Neurological/Psych: Oriented x3, Normal Speech, Normal Cognition ED Course And Treatment - Laboratory Results Result Diagrams: 01/17/19 09:19 01/17/19 09:19 ECG: Interpreted By Me, Viewed By Me ECG Rhythm: Sinus Rhythm Interpretation Of ECG: Normal Sinus Rhythm at rate 69bpm. Left [place] Deviation. Normal intervals. No ST elevations. T wave inversions in leads II, III, and AVF which are new compared to EKG from 12/29/18. Rate From EC O2 Sat by Pulse Oximetry: 98 (on RA) Pulse Ox Interpretation: Normal - Radiology CXR: Interpreted by Me CXR Interpretation: Yes: No Acute Disease Medical Decision Making Medical Decision Making: Impression: 43 year old male with left-sided chest pain yesterday, now resolved Plan: * bloodwork * CXR * EKG * reassess and disposition Progress: Bloodwork, EKG, CXR ordered and reviewed. 11:[address]. [address]. Bergman informed about the new EKG change compared to 12/29/18. He recommends no admission at this time. Recommends to prescribe patient Ranexa 500mg BID. States patient is stable for discharge if his repeat troponin is negative. Will call Dr. Miller back to inform him that patient will not be staying in hospital. 12:01: Dr. Miller paged. Awaiting callback. 12:13: Dr. Miller informed of plan. 12:16: Chest x-ray reviewed by me, shows no acute disease. 13:06 Second troponin is negative. Patient stable for discharge. Disposition Counseled Patient/Family Regarding: Studies Performed, Diagnosis, Need For Followup - Disposition Referrals: Alcon Bergman MD [Staff Provider] - [facility] [Outside] [facility] [Outside] Disposition: HOME/ ROUTINE Disposition Time: 13:13 Condition: STABLE Prescriptions: Ranolazine [Ranexa] 500 mg PO BID #60 ter Instructions: Chest Pain (DC) Forms: Gen Discharge Inst [facility]ian, [facility] (Vincentian) Print Language: KOREAN - POA Present On Arrival: None - Clinical Impression Clinical Impression: Chest pain - Scribe Statement The provider has reviewed the documentation as recorded by the Scribe (Radha Ware) Provider Attestation: All medical record entries made by the Scribe were at my direction and personally dictated by me. I have reviewed the chart and agree that the record accurately reflects my personal performance of the history, physical exam, medical decision making, and the department course for this patient. I have also personally directed, reviewed, and agree with the discharge instructions and disposition.
[2019-01-17 09:25] LABS: BASO % 0.5 % (0.0-2.0); EOS # 0.2 K/uL (0.0-0.7); EOS % 1.8 % (0.0-4.0); HEMOGLOBIN 15.4 g/dL (12.0-18.0); LYMPH # 2.3 K/uL (1.0-4.3); MEAN CELL VOLUME 91.5 fL (80.0-94.0); MEAN CORPUSCULAR HEMOGLOBIN 30.3 pg (27.0-31.0); MEAN CORPUSCULAR HGB CONC 33.1 g/dL (33.0-37.0); MEAN PLATELET VOLUME 10.9 fL (7.2-11.7); MONO # 0.6 K/uL (0.0-0.8); MONO % 7.6 % (0.0-10.0); NEUT # 5.1 K/uL (1.8-7.0); NEUT % 62.1 % (50.0-75.0); NRBC % 0.1 % (0.0-2.0); RBC 5.08 Mil/uL (4.40-5.90); RED CELL DISTRIBUTION WIDTH 13.4 % (11.5-14.5); WHITE BLOOD COUNT 8.2 K/uL (4.8-10.8)
[2019-01-17 09:47] LABS: ALB/GLOB RATIO 1.5 (1.0-2.1); ALBUMIN 4.8 g/dL (3.5-5.0); ALT/SGPT 97 U/L (21-72); AST/SGOT 47 U/L (17-59); BLOOD UREA NITROGEN 20 mg/dL (9-20); CALCIUM 9.2 mg/dl (8.6-10.4); GFR NON-AFRICAN AMERICAN > 60
[2019-01-17 09:49] LABS: B-TYPE NATRIURETIC PEPTIDE 66.4 pg/mL (0-450)
[2019-01-17 10:11] VITALS: TEMP 97.8
[2019-01-17] MEDS ORDERED: Aspirin 325 mg EC Tablets PO STA (11:17)
--- NOTE | 2019-01-17 11:53 | CP.PCM.HP ---
Past Patient History - Past Social History Smoking Status: Former Smoker - CARDIAC Hx Hypercholesterolemia: Yes - ENDOCRINE/METABOLIC Other/Comment: Prediabetic - PSYCHIATRIC Hx Substance Use: No - SURGICAL HISTORY Hx Cardiac Catheterization: Yes (x2) Hx Musculoskeletal Surgery: Yes (right arm sx s/p accident) - ANESTHESIA Hx Anesthesia: Yes Hx Anesthesia Reactions: No Hx Malignant Hyperthermia: No Meds Allergies/Adverse Reactions: Allergies Allergy/AdvReac Type Severity Reaction Status Date / Time No Known Allergies Allergy Verified 01/17/19 08:39 Results - Vital Signs Recent Vital Signs: Last Vital Signs Temp 97.8 F 01/17/19 10:11 Pulse 60 01/17/19 11:51 Resp 13 01/17/19 11:51 BP 123/70 01/17/19 11:51 Pulse Ox 98 01/17/19 11:51 - Labs Result Diagrams: 01/17/19 09:19 01/17/19 09:19 Labs: Laboratory Results - last 24 hr 01/17/19 01/17/19 09:19 09:19 WBC 8.2 RBC 5.08 Hgb 15.4 Hct 46.5 MCV 91.5 MCH 30.3 MCHC 33.1 RDW 13.4 Plt Count 149 MPV 10.9 Neut % (Auto) 62.1 Lymph % (Auto) 28.0 [place] % (Auto) 7.6 Eos % (Auto) 1.8 Baso % (Auto) 0.5 Neut # (Auto) 5.1 Lymph # (Auto) 2.3 [place] # (Auto) 0.6 Eos # (Auto) 0.2 Baso # (Auto) 0.0 Sodium 139 Potassium 3.9 Chloride 102 Carbon Dioxide 26 Anion Gap 15 BUN 20 Creatinine 0.8 Est GFR ( Amer) > 60 Est GFR (Non-Af Amer) > 60 Random Glucose 70 L D Calcium 9.2 Total Bilirubin 0.4 AST 47 ALT 97 H D Alkaline Phosphatase 42 Troponin I < 0.0120 NT-Pro-B Natriuret Pep 66.4 Total Protein 8.0 Albumin 4.8 Globulin 3.2 Albumin/Globulin Ratio 1.5
[2019-01-17 12:43] VITALS: BP 117/70; PULSE 57; RESP 12
--- NOTE | 2019-01-17 12:58 | RAD ---
Date of service: 01/17/2019 HISTORY: Chest pain COMPARISON: Comparison chest dated 12/28/2018. FINDINGS: LUNGS: Minimal bibasilar bibasilar atelectasis. PLEURA: No significant pleural effusion identified, no pneumothorax apparent. CARDIOVASCULAR: No aortic atherosclerotic calcification present. Normal cardiac size. No pulmonary vascular congestion. OSSEOUS STRUCTURES: No significant abnormalities. VISUALIZED UPPER ABDOMEN: Normal. OTHER FINDINGS: None. IMPRESSION: Minimal bibasilar atelectasis.
[2019-01-17 13:15] VITALS: O2SAT 98
[2019-01-18] MEDS ORDERED: Metoprolol Succinate 25 mg XL Tab PO SCH (10:00)
--- NOTE | 2019-01-19 21:50 | CARD ---
APPROVED REPORT Date of service: 01/17/2019 EKG Measurement Heart [id number] NM 140P29 [id number] <Conclusion> Normal sinus rhythm Left axis deviation Abnormal ECG
== END 2019-01-17 13:26 | disposition home or self-care (01) ==
LOC: C.ER 08:21
DX: R07.9 Chest pain, unspecified (principal); E78.00 Pure hypercholesterolemia, unspecified